=== PATIENT | male | born 1955 | race American Indian/Alaskan Native ===

== ENCOUNTER 2020-05-05 21:01 | Observation (INO) | payer OTHER ==
[2020-05-05] MEDS ORDERED: ASPIRIN 325 MG TAB PO ONE (21:17)
[2020-05-05] MEDS ORDERED: dilTIAZem 25 MG/5 ML INJ IV ONE (21:18)
--- NOTE | 2020-05-05 21:47 | XRay Report ---
CHEST 1 VIEW 05/05/2020 9:17 PM INDICATION / CLINICAL INFORMATION: chest pain. COMPARISON: Chest one view from 10/29/2012. FINDINGS: SUPPORT DEVICES: A single lead left ICD terminates appropriately over the right ventricle. HEART / MEDIASTINUM: No significant abnormality. LUNGS / PLEURA: No significant pulmonary or pleural abnormality. No pneumothorax. ADDITIONAL FINDINGS: No significant additional findings. IMPRESSION: 1. No acute abnormality of the chest. Signer Name: Poli Warren MD Signed: 05/05/2020 9:43 PM Workstation Name: [id number]
[2020-05-05 21:54] LABS: INR 1.32 (0.87-1.13)
[2020-05-05 21:55] LABS: Partial Thromboplastin Time 36.7 Sec. (24.2-36.6)
[2020-05-05 21:59] LABS: Basophils # (Auto) 0.1 K/mm3 (0.0-0.1); Eosinophils % (Auto) 0.6 % (0.0-4.3); Hematocrit 48.1 % (35.5-45.6); Lymphocytes % (Auto) 19.9 % (13.4-35.0); Mean Corpuscular HGB Conc 33 % (32-34); Mean Corpuscular Volume 80 fl (84-94); Monocytes # (Auto) 0.5 K/mm3 (0.0-0.8); Monocytes % (Auto) 10.6 % (0.0-7.3); Platelet Count 194 K/mm3 (140-440); Red Blood Count 6.01 M/mm3 (3.65-5.03); Red Cell Distribution Width 19.6 % (13.2-15.2)
[2020-05-05 22:05] LABS: BUN/Creatinine Ratio 9; Blood Urea Nitrogen 17 mg/dL (9-20); Calcium 8.8 mg/dL (8.4-10.2); Hemolysis Index 10
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
[2020-05-05] MEDS ORDERED: MORPHINE 4 MG/1 ML INJ IV PRN (23:32)
[2020-05-05] MEDS ORDERED: ACETAMINOPHEN 325 MG TAB PO PRN ×2 (23:32)
[2020-05-05] MEDS ORDERED: NITROGLYCERIN 0.4 MG TAB SUBL SL PRN (23:32)
[2020-05-05] MEDS ORDERED: MAGNESIUM HYDROXIDE (MOM) ORAL LIQD UDC PO PRN (23:32)
[2020-05-05] MEDS ORDERED: ONDANSETRON 4 MG/2 ML INJ IV PRN (23:32)
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
[2020-05-06] MEDS ORDERED: VITAMIN D PO SCH (01:00)
[2020-05-06 02:04] LABS: Calcium 8.6 mg/dL (8.4-10.2)
[2020-05-06 02:15] LABS: Basophils % (Auto) 0.7 % (0.0-1.8); Eosinophils % (Auto) 0.5 % (0.0-4.3); Hematocrit 47.8 % (35.5-45.6); Hemoglobin 15.3 gm/dl (11.8-15.2); Lymphocytes # (Auto) 1.3 K/mm3 (1.2-5.4); Lymphocytes % (Auto) 22.7 % (13.4-35.0); Mean Corpuscular HGB Conc 32 % (32-34); Mean Corpuscular Volume 81 fl (84-94); Monocytes # (Auto) 0.6 K/mm3 (0.0-0.8); Monocytes % (Auto) 11.5 % (0.0-7.3); Platelet Count 194 K/mm3 (140-440); Red Blood Count 5.88 M/mm3 (3.65-5.03); Red Cell Distribution Width 19.7 % (13.2-15.2)
[2020-05-06 02:22] LABS: Chol/HDL Ratio 3.18 %
[2020-05-06 04:33] LABS: INR 1.3 (0.87-1.13)
[2020-05-06 04:39] LABS: Basophils % (Auto) 0.8 % (0.0-1.8); Eosinophils % (Auto) 0.8 % (0.0-4.3); Hematocrit 46.4 % (35.5-45.6); Lymphocytes # (Auto) 1.3 K/mm3 (1.2-5.4); Lymphocytes % (Auto) 23.6 % (13.4-35.0); Mean Corpuscular HGB Conc 32 % (32-34); Mean Corpuscular Volume 82 fl (84-94); Monocytes # (Auto) 0.7 K/mm3 (0.0-0.8); Monocytes % (Auto) 13.4 % (0.0-7.3); Platelet Count 193 K/mm3 (140-440); Red Blood Count 5.69 M/mm3 (3.65-5.03); Red Cell Distribution Width 19.5 % (13.2-15.2)
[2020-05-06 04:44] LABS: Calcium 8.3 mg/dL (8.4-10.2)
[2020-05-06] MEDS ORDERED: GABAPENTIN 400 MG CAP ONE (08:00)
[2020-05-06] MEDS ORDERED: GABAPENTIN 400 MG PO SCH (08:00)
[2020-05-06] MEDS: GABAPENTIN 400 MG CAP PO SCH ×3 (08:09→21:19)
[2020-05-06] MEDS ORDERED: NALTREXONE 50 MG PO SCH (10:00)
[2020-05-06] MEDS ORDERED: NON-FORMULARY EACH (Eliquis 5 MG) PO SCH (10:00)
[2020-05-06] MEDS ORDERED: APIXABAN 5 MG TAB PO SCH (10:00)
[2020-05-06] MEDS ORDERED: NON-FORMULARY EACH (Finasteride 5 MG) PO SCH (10:00)
[2020-05-06] MEDS ORDERED: METOPROLOL SUCCINATE 100 MG PO SCH ×2 (10:00)
[2020-05-06] MEDS ORDERED: ASPIRIN EC 325 MG TAB PO ONE (10:05)
[2020-05-06] MEDS ORDERED: APIXABAN 5 MG TAB ONE (10:06)
[2020-05-06] MEDS: METOPROLOL SUCCINATE XL 100 MG TAB PO SCH (10:10)
[2020-05-06] MEDS: FINASTERIDE 5 MG TAB PO SCH (10:13)
[2020-05-06] MEDS: ASPIRIN EC 325 MG TAB PO SCH (10:14)
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
--- NOTE | 2020-05-06 15:01 | Event Note ---
Date: 05/06/20 Patient seen and examined 65-year-old -Russian male with known history of hypertension, atrial fibrillation, defibrillator in place presenting to the emergency room today complaining of chest pain after his defibrillator fired. He is heart rate currently stable with beta-keila Wait for ICD interrogation and follow cardiology recommendation If clinically stable possible DC tomorrow morning
--- NOTE | 2020-05-07 09:21 | Progress Note ---
Assessment and Plan 65-year-old male presents with recurrent ICD shocks and atrial fibrillation with RVR The patient is normally followed at the [facility] Atrial fibrillation - pt currently in NSR Ablations x 2 (unclear what type) CHF? Hypertension NSVT Tobacco use Francis ICD [phone] Electrolytes wnl Continue Eliquis and Toprol Await AICD interrogation The patient has been seen in conjunction with Dr. Edinson Prince who agrees with the assessment and plan of care. Subjective Date of service: 05/07/20 Principal diagnosis: AICD shock Interval history: pt resting in bed, no apparent distress. tele reviewed - in SR with infrequent PVCs and brief 3-4 beat runs NSVT noted overnight, pt asymptomatic. Objective Last Vital Signs Temp 97.6 F 05/07/20 04:32 Pulse 59 L 05/07/20 04:32 Resp 18 05/07/20 04:32 BP 140/98 05/07/20 05:07 Pulse Ox 100 05/07/20 04:32 - Physical Examination General: No Apparent Distress HEENT: Positive: PERRL Neck: Positive: neck supple, trachea midline Cardiac: Positive: Reg Rate and Rhythm, S1/S2 Lungs: Positive: Decreased Breath Sounds Neuro: Positive: Grossly Intact Abdomen: Positive: Soft, Active Bowel Sounds Skin: Negative: Rash, Suspicious Lesions Extremities: Present: warm - Imaging and Cardiology EKG: report reviewed, image reviewed Echo: pending - Telemetry EKG Rhythm: Sinus Rhythm
[2020-05-07] MEDS ORDERED: AMIODARONE 200 MG TAB PO SCH (11:00)
[2020-05-07] MEDS ORDERED: APIXABAN 5 MG TAB PO SCH (12:00)
[2020-05-07] MEDS: GABAPENTIN 400 MG CAP PO SCH (12:00)
[2020-05-07] MEDS: METOPROLOL SUCCINATE XL 100 MG TAB PO SCH (12:34)
[2020-05-07] MEDS: FINASTERIDE 5 MG TAB PO SCH (12:35)
[2020-05-07] MEDS: ASPIRIN EC 325 MG TAB PO SCH (12:45)
[2020-05-07 12:50] VITALS: BP 149/94
--- NOTE | 2020-05-07 15:24 | Discharge Summary ---
Providers - Providers Date of Admission: 05/05/20 23:25 Date of discharge: 05/07/20 Attending physician: KIKE SHANNON 05/05/20 Consult to Cardiac Rehabilitation [CONS] Routine Reason For Exam: Phase I 05/05/20 23:33 Consult to Cardiology [CONS] Routine Consulting Provider: ANGEL SHANKAR Reason For Exam: Chest Pain, afib with RVR Primary care physician: BACKUP SAWYER Hospitalization Condition: Stable Hospital course: Discharge diagnosis: Status post recurrent ICD shocks Atrial fibrillation, patient currently normal sinus rhythm -Status post ablation x2 in the past -Anticoagulated with Eliquis History of CHF with unknown EF, compensated Hypertension History of NSVT Tobacco abuse Status post ICD placement Disposition: [id number] HOME [facility] Time spent for discharge: 34 minutes Core Measure Documentation - Palliative Care Palliative Care/ Comfort Measures: Not Applicable - Core Measures Any of the following diagnoses?: history only Exam - Constitutional Vitals: Temp Pulse Resp BP Pulse Ox 98.2 F 84 18 149/94 99 05/07/20 12:32 05/07/20 12:34 05/07/20 12:32 05/07/20 12:32 05/07/20 12:32 General appearance: Present: no acute distress, well-nourished - EENT Eyes: Present: PERRL ENT: hearing intact, clear oral mucosa - Neck Neck: Present: supple, normal ROM - Respiratory Respiratory effort: normal Respiratory: bilateral: CTA - Cardiovascular Heart Sounds: Present: S1 & S2. Absent: rub, click - Extremities Extremities: pulses symmetrical, No edema Peripheral Pulses: within normal limits - Abdominal General gastrointestinal: Present: soft, non-tender, non-distended, normal bowel sounds - Integumentary Integumentary: Present: clear, warm, dry - Musculoskeletal Musculoskeletal: gait normal, strength equal bilaterally - Psychiatric Psychiatric: appropriate mood/affect, intact judgment & insight - Neurologic Neurologic: CNII-XII intact, moves all extremities Plan Activity: advance as tolerated Weight Bearing Status: Non-Weight Bearing Diet: low fat, low salt Follow up with: PRIMARY CARE, [Primary Care Provider] - 7 Days ASAD SCHAFFER MD [Staff Physician] - 7 Days Prescriptions: Amiodarone [Cordarone 200 MG TAB] 200 mg PO BID #30 tablet
[2020-05-07 17:41] LABS: Alanine Aminotransferase 10 units/L (7-56); Albumin 3.6 g/dL (3.9-5)
[2020-05-07 17:50] LABS: Bilirubin,Direct < 0.2 mg/dL (0-0.2)
[2020-05-11] MEDS ORDERED: ERGOCALCIFEROL (VIT D2) 50,000 UNIT CAP PO SCH (10:00)
== END 2020-05-07 18:00 | disposition home or self-care (01) ==
LOC: ED 21:01 → 4A 23:25 → UNDODISOB 05-07 15:50
PROVIDERS: ADMIT Internal Medicine Geriatric Medicine; ATTEND Internal Medicine
DX: T82.198A Other mechanical complication of other cardiac electronic device, initial encounter (principal); R07.89 Other chest pain; I48.20 Chronic atrial fibrillation, unspecified; I11.0 Hypertensive heart disease with heart failure; I50.9 Heart failure, unspecified; I25.10 Atherosclerotic heart disease of native coronary artery without angina pectoris; F17.200 Nicotine dependence, unspecified, uncomplicated; Z98.890 Other specified postprocedural states; Z45.02 Encounter for adjustment and management of automatic implantable cardiac defibrillator; Z79.82 Long term (current) use of aspirin
CPT/HCPCS: 36415; 71045; 80048; 80061; 80076; 84484; 85025; 85610; 85730; 93005; 93306; 96374; 99285; G0378; J3246

== ENCOUNTER 2021-07-11 09:45 | Emergency (ER) | payer OTHER ==
[~2021-07-11 09:45] MED LIST: EPINEPHrine 1 MG/10 ML SYRINGE ONE; SODIUM BICARB 8.4% 50 MEQ/50 ML SYRINGE IV ONE
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
== END 2021-07-11 10:00 ==
LOC: ED 09:45
DX: I46.9 Cardiac arrest, cause unspecified (principal); I11.0 Hypertensive heart disease with heart failure; I50.9 Heart failure, unspecified; N28.9 Disorder of kidney and ureter, unspecified; J44.9 Chronic obstructive pulmonary disease, unspecified; Z91.011 Allergy to milk products; Z79.899 Other long term (current) drug therapy; Z98.890 Other specified postprocedural states
CPT/HCPCS: 92950; 99285; J0171; J3490